=== PATIENT | male | born 1990 ===

== ENCOUNTER 2017-08-29 05:39 | Emergency (ER) | payer SELFPAY ==
[2017-08-29 05:54] VITALS: PULSE 84; TEMP 97.9
--- NOTE | 2017-08-29 06:18 | C.PDOC ---
History Of Present Illness Patient has been having intermittent nose bleeds Had another episode captain/airline pilot. No active bleeding at the present. Denies any trauma. Not on anticoagulation. Time Seen by Provider: 08/29/17 06:17 Chief Complaint (Nursing): ENT Problem History Per: Patient History/Exam Limitations: None Onset/Duration Of Symptoms: Days Current Symptoms Are (Timing): Gone Severity: None Anticoagulant/Antiplatlet Use?: No Recent Aspirin Use: No Past Medical History Reviewed: Historical Data, Nursing Documentation, Vital Signs Vital Signs: Last Vital Signs Temp 97.9 F 08/29/17 05:50 Pulse 84 08/29/17 05:50 Resp 18 08/29/17 05:50 BP 143/92 H 08/29/17 05:50 Pulse Ox 100 08/29/17 06:17 - Medical History PMH: Denies: Chronic Kidney Disease Family History: States: No Known Family Hx - Social History Hx Alcohol Use: No Hx Substance Use: No - Immunization History Hx Tetanus Toxoid Vaccination: No Hx Influenza Vaccination: No Hx Pneumococcal Vaccination: No Review Of Systems Constitutional: Negative for: Fever, Chills ENT: Negative for: Nose Discharge, Nose Congestion Respiratory: Negative for: Shortness of Breath Physical Exam - Physical Exam Appears: Non-toxic Nose: No Flaring, No Discharge, No Epistaxis, No Tenderness, Other (small area of secoriation right nare. no active bleeding) Oral Mucosa: Moist Lips: Normal Appearing Throat: No Erythema, No Exudate Neck: Trachea Midline, Supple ED Course And Treatment O2 Sat by Pulse Oximetry: 100 Pulse Ox Interpretation: Normal Disposition Counseled Patient/Family Regarding: Studies Performed, Diagnosis, Need For Followup - Disposition Referrals: Forrest Eisenberg MD [Staff Provider] - Disposition: HOME/ ROUTINE Disposition Time: 06:17 Condition: FAIR Additional Instructions: Please return if symptoms recur Instructions: Nosebleeds (DC) Forms: [employer] (Danish) - Clinical Impression Clinical Impression: Epistaxis
[2017-08-29 06:40] VITALS: BP 134/73; RESP 20; O2SAT 98
== END 2017-08-29 06:37 | disposition home or self-care (01) ==
LOC: C.ER 05:39
DX: R04.0 Epistaxis (principal)